=== PATIENT | female | born 1940 | race Caucasian/White ===

== ENCOUNTER → 2016-12-11 | Outpatient (CLI) | payer OTHER ==
[~2016-12-11] MED LIST: AMLO-110 PO; ASCO100T4 PO; ASPEC325 PO; ATEN-173 PO; BIOT10TA2 PO; CRS/10 PO; FOLI1TAB7 PO; GLUC1CAP33 PO; ISOS30TA3 PO; MULT-506 PO; POTA25TA PO; PRLSR20 PO; VITA100C4 PO
== END | disposition home or self-care (01) ==
LOC: C.RDSM 13:00
PROVIDERS: ATTEND Physical Medicine & Rehabilitation Sports Medicine
DX: Z47.1 Aftercare following joint replacement surgery (principal); Z96.642 Presence of left artificial hip joint